=== PATIENT | male | born 1990 | race Caucasian/White ===

== ENCOUNTER 2017-03-13 21:21 | Emergency (ER) | payer OTHER ==
[~2017-03-13] VITALS: Ht 185.4 cm; Wt 88.1 kg
[2017-03-13] MEDS ORDERED: CLEOCIN300 MG PO (23:09)
[2017-03-13] MEDS ORDERED: PERCOCET 5/31 TABLET PO (23:09)
[2017-03-13] MEDS ORDERED: VALTREX1000 MG PO (23:09)
[2017-03-13 23:33] VITALS: BP 126/93
== END 2017-03-13 23:34 | disposition home or self-care (01) ==
LOC: EME 21:21
DX: L02.416 Cutaneous abscess of left lower limb (principal); Z95.2 Presence of prosthetic heart valve; Z88.0 Allergy status to penicillin; Z87.891 Personal history of nicotine dependence
CPT/HCPCS: 99281; 99285